=== PATIENT | female | born 1945 | race Caucasian/White ===

== ENCOUNTER 2024-07-28 16:43 | Inpatient (IN) | payer MEDICARE, BC ==
[2024-07-28] MEDS: Sodium Chloride 0.9% 1,000 ML IV ONE (16:48)
[2024-07-28] MEDS: Diltiazem 25 MG/5 ML SDV ONE (16:49)
[2024-07-28] MEDS: Ondansetron 4 MG/2 ML SDV IVPUSH ONE (16:49)
[2024-07-28 17:23] LABS: BASOPHILS PERCENT AUTO 0.1 % (0.0-1.0); EOSINOPHILS PERCENT AUTO 0.1 % (1.0-3.0); HEMATOCRIT 39.6 % (37.0-47.0); HEMOGLOBIN 13.8 g/dL (12.0-16.0); LYMPHOCYTES PERCENT AUTO 12.3 % (20.5-50.1); MEAN CORPUSCULAR HEMOGLOBIN 33.1 pg (27.0-34.0); MEAN CORPUSCULAR HGB CONC 34.8 g/dL (33.0-35.0); NEUTROPHILS PERCENT AUTO 70.5 % (42.2-75.2); PLATELET COUNT,PLT 224 10^3/uL (150-450); RED BLOOD CELL COUNT 4.17 10^6/uL (4.2-5.4); WHITE BLOOD CELL COUNT,WBC 13.8 10^3/uL (5.0-10.0)
[2024-07-28 17:41] LABS: INR 2.8 (0.9-1.2); PROTHROMBIN TIME 27.6 SEC (9.0-12.0)
[2024-07-28 17:47] LABS: ALBUMIN 2.2 g/dL (3.4-5.0); ANION GAP 12.6 mEq/L (7-13); CALCIUM 8.2 mg/dL (8.5-10.1); CREATININE 0.94 mg/dL (0.55-1.02); EST CRCL DRUG DOSING (CG) 40.53 mL/min; MAGNESIUM 1.7 mg/dL (1.8-2.4); POTASSIUM,K 3.6 mmol/L (3.5-5.1); PROTEIN TOTAL,TP 4.6 g/dL (6.4-8.2)
[2024-07-28 17:49] LABS: APPEARANCE,URINE SLIGHTLY CLOUDY (CLEAR); BILIRUBIN,URINE NEGATIVE (NEGATIVE); COLOR,URINE YELLOW (YELLOW); GLUCOSE,URINE NEGATIVE (NEGATIVE); KETONES,URINE NEGATIVE (NEGATIVE); LEUKOCYTE ESTERASE,URINE SMALL (NEGATIVE); NITRITE,URINE NEGATIVE (NEGATIVE); OCCULT BLOOD,URINE TRACE-LYSED (NEGATIVE); PROTEIN,URINE TRACE (NEGATIVE)
[2024-07-28 17:53] LABS: A/G RATIO 0.92
[2024-07-28 17:54] LABS: LACTIC ACID 2.1 mmol/L (0.4-2.0)
[2024-07-28 18:07] LABS: BACTERIA,URINE FEW /HPF (0-FEW/HPF); EPITHELIAL CELLS,URINE FEW /HPF (NOT SEEN); RBC,URINE 0-5 /HPF (0-5)
[2024-07-28] MEDS: Diltiazem 125 MG in Sodium Chloride 0.9% 100 ML IV SCH (18:25)
[2024-07-28] MEDS: Ampicillin/Sulbactam Na 3 GM in Sodium Chloride 0.9% 100 ML IV ONE (18:32)
[2024-07-28] MEDS ORDERED: Metoprolol Tartrate 5 MG/5 ML SDV IVPUSH PRN ×2 (19:40→21:45)
[2024-07-28] MEDS ORDERED: hydrALAZINE 20 MG/ML SDV IVPUSH PRN (19:40)
[2024-07-28] MEDS ORDERED: Take Home: traMADol 50 MG, 4 Tab Pack PO PRN (19:52)
[2024-07-28 21:18] LABS: C-REACTIVE PROTEIN 9.97 ng/dL (<=0.50); URIC ACID 3.6 mg/dL (2.6-6.0)
[2024-07-28 21:31] LABS: T4 FREE 1.68 ng/dL (0.76-1.46); TSH ULTRASENSITIVE 1.45 uIU/mL (0.36-3.74)
[2024-07-28] MEDS ORDERED: Naloxone 2 MG/2 ML Syringe IVPUSH PRN (22:01)
[2024-07-28] MEDS ORDERED: Polyethylene Glycol 3350 Powder 17 GM Packet PO PRN (22:01)
[2024-07-28] MEDS ORDERED: Albuterol/Ipratropium 3.0-0.5 MG/3 ML Neb Soln NEB PRN (22:01)
[2024-07-28] MEDS ORDERED: Magnesium Hydroxide 400 MG/5 ML Susp 30 ML Cup PO PRN (22:01)
[2024-07-28] MEDS ORDERED: oxyCODONE 5 MG Tab PO PRN (22:03)
[2024-07-28] MEDS: Dexamethasone 4 MG/ML SDV IVPUSH ONE (22:30)
[2024-07-28] MEDS: Pantoprazole 40 MG Vial IVPUSH ONE (22:30)
[2024-07-28] MEDS: Magnesium Sulfate/Water Premix 2 GM in Premix Bag 1 BAG IV ONE (22:31)
[2024-07-28] MEDS: Midodrine 5 MG Tab PO ONE (22:33)
[2024-07-28] MEDS: Sucralfate 1 GM Tab PO ONE (22:33)
[2024-07-28] MEDS: Naproxen 250 MG Tab PO ONE (22:33)
[2024-07-28] MEDS: Metoprolol Tartrate 25 MG Tab PO ONE (22:34)
[2024-07-28] MEDS: oxyCODONE 5 MG Tab PO PRN (22:35)
[2024-07-28] MEDS: HYDROmorphone 0.5 MG/0.5 ML Syringe IVPUSH PRN (22:36)
[2024-07-29] MEDS: diphenhydrAMINE 50 MG/ML SDV IVPUSH PRN (01:51)
[2024-07-29] MEDS: Levothyroxine 25 MCG Tab PO SCH (05:55)
[2024-07-29] MEDS: Midodrine 5 MG Tab PO SCH (05:55)
[2024-07-29] MEDS: Pantoprazole 40 MG Tab.CR PO SCH (05:55)
[2024-07-29] MEDS: Sucralfate 1 GM Tab PO SCH (06:00)
[2024-07-29] MEDS ORDERED: Levothyroxine 50 MCG Tab PO SCH (06:00)
[2024-07-29 07:24] LABS: INR 2.3 (0.9-1.2); PROTHROMBIN TIME 22.5 SEC (9.0-12.0)
[2024-07-29 07:25] LABS: HEMATOCRIT 39.7 % (37.0-47.0); HEMOGLOBIN 13.7 g/dL (12.0-16.0); LYMPHOCYTES PERCENT AUTO 11.7 % (20.5-50.1); MEAN CORPUSCULAR HEMOGLOBIN 32.9 pg (27.0-34.0); MEAN CORPUSCULAR HGB CONC 34.5 g/dL (33.0-35.0); MEAN CORPUSCULAR VOLUME 95.2 fL (80-100); MONOCYTES PERCENT AUTO 5.2 % (2-8); NEUTROPHILS PERCENT AUTO 83.1 % (42.2-75.2); PLATELET COUNT,PLT 212 10^3/uL (150-450); RED BLOOD CELL COUNT 4.17 10^6/uL (4.2-5.4); WHITE BLOOD CELL COUNT,WBC 8.4 10^3/uL (5.0-10.0)
[2024-07-29 07:37] LABS: ALBUMIN 2.2 g/dL (3.4-5.0); ANION GAP 10.9 mEq/L (7-13); BILIRUBIN TOTAL 0.9 mg/dL (0.2-1.0); BUN/CREATININE RATIO 18.3 (No establ ref range); C-REACTIVE PROTEIN 8.15 ng/dL (<=0.50); CALCIUM 8.9 mg/dL (8.5-10.1); CREATININE 0.82 mg/dL (0.55-1.02); EST CRCL DRUG DOSING (CG) 38.65 mL/min; MAGNESIUM 2.6 mg/dL (1.8-2.4); POTASSIUM,K 4.9 mmol/L (3.5-5.1); PROTEIN TOTAL,TP 5.5 g/dL (6.4-8.2)
[2024-07-29 07:40] LABS: A/G RATIO 0.67
[2024-07-29] MEDS ORDERED: Metoprolol Tartrate 25 MG Tab PO SCH (09:00)
[2024-07-29] MEDS ORDERED: Hydrochlorothiazide 25 MG Tab PO SCH (09:00)
[2024-07-29] MEDS: Naproxen 250 MG Tab PO SCH (09:31)
[2024-07-29] MEDS: Saccharomyces Boulardii (Probiotic) 250 MG Cap PO SCH (09:31)
[2024-07-29] MEDS: Metoprolol Tartrate 50 MG Tab PO SCH ×2 (09:32→21:17)
[2024-07-29] MEDS: cefTRIAXone 1 GM Vial IVPUSH SCH (09:32)
[2024-07-29] MEDS ORDERED: Metoprolol Tartrate 50 MG Tab PO SCH (09:34)
[2024-07-29] MEDS: Warfarin** 1 MG TABLET PO ONE (21:15)
[2024-07-29] MEDS: Sennosides/Docusate Sodium 50-8.6 MG Tab PO PRN (21:18)
[2024-07-29] MEDS: Melatonin 3 MG Tab PO PRN (21:18)
[2024-07-30 06:36] LABS: BASOPHILS PERCENT AUTO 0.3 % (0.0-1.0); EOSINOPHILS PERCENT AUTO 0.3 % (1.0-3.0); HEMATOCRIT 41.7 % (37.0-47.0); HEMOGLOBIN 14.7 g/dL (12.0-16.0); LYMPHOCYTES PERCENT AUTO 27.2 % (20.5-50.1); MEAN CORPUSCULAR HEMOGLOBIN 33.4 pg (27.0-34.0); MEAN CORPUSCULAR HGB CONC 35.3 g/dL (33.0-35.0); MEAN CORPUSCULAR VOLUME 94.8 fL (80-100); MONOCYTES PERCENT AUTO 14.9 % (2-8); NEUTROPHILS PERCENT AUTO 57.3 % (42.2-75.2); PLATELET COUNT,PLT 338 10^3/uL (150-450); WHITE BLOOD CELL COUNT,WBC 3.6 10^3/uL (5.0-10.0)
[2024-07-30 06:55] LABS: ALBUMIN 2.4 g/dL (3.4-5.0); ANION GAP 8.2 mEq/L (7-13); BILIRUBIN TOTAL 0.7 mg/dL (0.2-1.0); BUN/CREATININE RATIO 21.9 (No establ ref range); C-REACTIVE PROTEIN 4.07 ng/dL (<=0.50); CALCIUM 8.7 mg/dL (8.5-10.1); CREATININE 0.96 mg/dL (0.55-1.02); EST CRCL DRUG DOSING (CG) 33.01 mL/min; MAGNESIUM 2.2 mg/dL (1.8-2.4); POTASSIUM,K 4.2 mmol/L (3.5-5.1); PROTEIN TOTAL,TP 5.9 g/dL (6.4-8.2)
[2024-07-30 07:00] LABS: A/G RATIO 0.69; PROTHROMBIN TIME 19.8 SEC (9.0-12.0)
[2024-07-30] MEDS: Ondansetron 4 MG/2 ML SDV IVPUSH PRN (08:44)
[2024-07-30] MEDS ORDERED: Acetaminophen/HYDROcodone 325-5 MG Tab PO PRN (09:00)
[2024-07-30] MEDS ORDERED: Scopalamine 1mg/3day Transdermal Patch TRDERM PRN (17:54)
[2024-07-30] MEDS: Metoclopramide 10 MG/2 ML SDV IV PRN (17:55)
[2024-07-30] MEDS: Warfarin** 1 MG TABLET PO ONE (20:55)
[2024-07-31 06:24] LABS: BASOPHILS PERCENT AUTO 0.2 % (0.0-1.0); EOSINOPHILS PERCENT AUTO 1.1 % (1.0-3.0); HEMATOCRIT 39.7 % (37.0-47.0); HEMOGLOBIN 13.9 g/dL (12.0-16.0); LYMPHOCYTES PERCENT AUTO 42.5 % (20.5-50.1); MEAN CORPUSCULAR HEMOGLOBIN 32.9 pg (27.0-34.0); MEAN CORPUSCULAR VOLUME 94.1 fL (80-100); MONOCYTES PERCENT AUTO 20.1 % (2-8); NEUTROPHILS PERCENT AUTO 36.1 % (42.2-75.2); PLATELET COUNT,PLT 326 10^3/uL (150-450); RED BLOOD CELL COUNT 4.22 10^6/uL (4.2-5.4); WHITE BLOOD CELL COUNT,WBC 4.7 10^3/uL (5.0-10.0)
[2024-07-31 06:52] LABS: INR 3.3 (0.9-1.2); PROTHROMBIN TIME 31.3 SEC (9.0-12.0)
[2024-07-31 08:36] LABS: ALBUMIN 2.1 g/dL (3.4-5.0); ANION GAP 10.8 mEq/L (7-13); BILIRUBIN TOTAL 0.3 mg/dL (0.2-1.0); BUN/CREATININE RATIO 24.3 (No establ ref range); C-REACTIVE PROTEIN 1.66 ng/dL (<=0.50); CALCIUM 8.3 mg/dL (8.5-10.1); CREATININE 0.74 mg/dL (0.55-1.02); EST CRCL DRUG DOSING (CG) 42.83 mL/min; POTASSIUM,K 3.8 mmol/L (3.5-5.1); PROTEIN TOTAL,TP 5.1 g/dL (6.4-8.2)
[2024-07-31 08:37] LABS: A/G RATIO 0.7
[2024-07-31] MEDS ORDERED: Melatonin 3 MG Tab PO PRN (19:10)
[2024-07-31] MEDS: Warfarin 2 MG Tab PO ONE (20:29)
[2024-07-31] MEDS: LORazepam 1 MG Tab PO PRN (20:29)
[2024-08-01 06:23] LABS: BASOPHILS PERCENT AUTO 0.2 % (0.0-1.0); EOSINOPHILS PERCENT AUTO 1.4 % (1.0-3.0); HEMATOCRIT 39.3 % (37.0-47.0); HEMOGLOBIN 13.5 g/dL (12.0-16.0); LYMPHOCYTES PERCENT AUTO 40.6 % (20.5-50.1); MEAN CORPUSCULAR HEMOGLOBIN 32.5 pg (27.0-34.0); MEAN CORPUSCULAR HGB CONC 34.4 g/dL (33.0-35.0); MEAN CORPUSCULAR VOLUME 94.7 fL (80-100); MONOCYTES PERCENT AUTO 16.4 % (2-8); NEUTROPHILS PERCENT AUTO 41.4 % (42.2-75.2); PLATELET COUNT,PLT 332 10^3/uL (150-450); RED BLOOD CELL COUNT 4.15 10^6/uL (4.2-5.4); WHITE BLOOD CELL COUNT,WBC 5.2 10^3/uL (5.0-10.0)
[2024-08-01 06:41] LABS: INR 3.9 (0.9-1.2)
[2024-08-01 06:47] LABS: ALBUMIN 2.1 g/dL (3.4-5.0); ANION GAP 10.8 mEq/L (7-13); BILIRUBIN TOTAL 0.3 mg/dL (0.2-1.0); BUN/CREATININE RATIO 18.7 (No establ ref range); CALCIUM 8.8 mg/dL (8.5-10.1); CREATININE 0.75 mg/dL (0.55-1.02); EST CRCL DRUG DOSING (CG) 42.26 mL/min; MAGNESIUM 2.1 mg/dL (1.8-2.4); POTASSIUM,K 3.8 mmol/L (3.5-5.1)
[2024-08-01 06:48] LABS: A/G RATIO 0.72
[2024-08-01 12:50] VITALS: BP 138/78; PULSE 73
== END 2024-08-01 12:45 | disposition home or self-care (01) | DRG 309 ==
LOC: DL.ED 16:43 → DL.MS 18:24
PROVIDERS: ADMIT Internal Medicine; ATTEND Internal Medicine
DX: I48.91 Unspecified atrial fibrillation (principal); N39.0 Urinary tract infection, site not specified; E44.0 Moderate protein-calorie malnutrition; E87.1 Hypo-osmolality and hyponatremia; L03.114 Cellulitis of left upper limb; E87.20 Acidosis, unspecified; Z66 Do not resuscitate; Z79.890 Hormone replacement therapy; I10 Essential (primary) hypertension; L08.9 Local infection of the skin and subcutaneous tissue, unspecified; H54.7 Unspecified visual loss; E78.00 Pure hypercholesterolemia, unspecified; M79.7 Fibromyalgia; M81.0 Age-related osteoporosis without current pathological fracture; E03.9 Hypothyroidism, unspecified; Z96.653 Presence of artificial knee joint, bilateral; M54.9 Dorsalgia, unspecified; G89.29 Other chronic pain; I95.9 Hypotension, unspecified; D72.829 Elevated white blood cell count, unspecified; R73.9 Hyperglycemia, unspecified; E83.42 Hypomagnesemia; E88.09 Other disorders of plasma-protein metabolism, not elsewhere classified; Z79.01 Long term (current) use of anticoagulants; Z88.8 Allergy status to other drugs, medicaments and biological substances; Z88.2 Allergy status to sulfonamides; Z88.1 Allergy status to other antibiotic agents; Z79.899 Other long term (current) drug therapy; Z86.0100 Personal history of colon polyps, unspecified; Z87.81 Personal history of (healed) traumatic fracture; Z68.28 Body mass index [BMI] 28.0-28.9, adult
CPT/HCPCS: 36415; 71045; 80053; 81001; 83605; 83735; 83880; 84484; 85025; 85610; 87040 ×2; 87086; 93010; 96361; 96374; 99285 ×2; J2405; J3490; J7030; 83930; 83935; 84439; 84443; 84550; 86140; 87428-QW; 92610-GN; 93306; 97161-GP; 97165-GO; 99223; 99232; 99238; A9270-GY; J0295; J0696; J1100; J1171; J1200; J2470; J2765; J3475; J8540